=== PATIENT | female | born 1995 | race Caucasian/White ===

== ENCOUNTER 2022-04-09 12:38 | Inpatient (IN) ==
[2022-04-09] MEDS ORDERED: OXYTOCIN 30 UNITS/500 ML BAG IV PRN (12:41)
[2022-04-09] MEDS ORDERED: LIDOCAINE 1% LOCAL 20 ML VIAL INFIL PRN (12:41)
--- NOTE | 2022-04-09 12:44 | History & Physical Report ---
Date of Service April 09, 2022 Assessment & Plan (1) with 39 completed weeks gestation: (2) SROM (spontaneous rupture of membranes): Plan Admission, epidural on demand. discussed issues with prom. gbs neg. Patient will discuss plan with Dr. Singleton who is taking over her care. fetus category one. History of Present Illness Primary Care Provider: Kori Somers MD Patient is a 26yowf with iup at 39 3/7 weeks who presents to labor and delivery from the office where she was determined to be ruptured by sse. She is now sent here for srom. gbs neg. +fm. no vb. and Delivery Plans covid vaccine and booster. Flu vaccine given 01/22/22- OB Labs: Blood Type A Positive 09/04/21 Antibody Screen NEGATIVE 09/04/21 Hemoglobin 11.2 g/dl (12.0-16.0) L 01/22/22 Hematocrit 32.7 % (34.1-44.9) L 01/22/22 Mean Corpuscular Volume 90.5 fL (80-100) 09/04/21 Platelet Count 192 K/uL (130-400) 09/04/21 Rubella IgG Antibody Immune (Immune) 09/04/21 Rapid Plasma Reagin Nonreactive (Nonreactive) 09/04/21 Hepatitis B Surface Antigen. NON-REACTIVE (NON-REACTIVE) 09/04/21 Hepatitis C Antibody (EIA) NON-REACTIVE (NON-REACTIVE) 09/04/21 HIV (1&2) Ag and Ab Confirmation NON-REACTIVE (NON-REACTIVE) 09/04/21 Glucose 1 Hour 50 gm Load 125 mg/dl (70-130) 01/22/22 OB Optional Labs: Chlamydia trachomatis RNA NOT DETECTED (NOT DETECTED) 09/04/21 Neisseria gonorrhoeae RNA NOT DETECTED (NOT DETECTED) 09/04/21 Labs Reviewed: cf/sma-negative--mln cfdna-low risk--mln Declines msafp--mln gbs neg Allergies Allergy/AdvReac Type Severity Reaction Status Date / Time No Known Allergies Allergy Verified 04/09/22 12:01 Home Medications Medication Instructions Recorded Confirmed Type prenat.vits,ada,adb-[id number] 1 tab PO DAILY 08/28/21 04/09/22 History Patient History Medical History Varicella vaccination Surgical History S/P wisdom tooth extraction Status post laser ablation of incompetent vein Family History Grandmother (Paternal) Breast cancer Aunt Breast cancer (P) aunts x2 Father Melanoma Denies family history of Ovarian cancer Colorectal cancer Social History Smoking Status: Never smoker marital status: marital status details: Сергей Mendez (28) [phone] Current Living Situation: Spouse Current Living Situation Comment: lives with spouse, dog current occupational status: employed current occupation: [employer] 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
[2022-04-09 13:06] LABS: Hematocrit (blood only) 37.3 % (34.1-44.9); Mean Corpuscular Hemoglobin 30.7 pg (25.0-34.0); Mean Corpuscular Hgb Conc 34.9 g/dL (32.0-36.0); Mean Platelet Volume 10.8 fL (9.4-12.3); Platelet Count 206 K/uL (130-400); RDW Standard Deviation 41.1 fL (36.4-46.3); Red Blood Count 4.24 M/uL (3.93-5.22); White Blood Count 8.32 K/ul (4.8-10.8)
[2022-04-09] MEDS ORDERED: BUTORPHANOL TARTRATE 1 MG/ML VIAL IV PRN (18:39)
[2022-04-09] MEDS: LACTATED RINGER'S 1,000 ML IV PRN ×2 (20:44→21:50)
[2022-04-09] MEDS ORDERED: ePHEDrine sulfate 50 MG/ML AMP ONE (20:55)
[2022-04-09] MEDS ORDERED: fentaNYL 2MCG/ML ROPIVACAINE 1.25MG/ML 100 ML BAG EPI ONE (20:56)
[2022-04-09] MEDS ORDERED: BUPIVACAINE 0.25% 30 ML VIAL ONE (20:56)
[2022-04-09] MEDS ORDERED: fentaNYL citrate 100 MCG/2 ML VIAL ONE (20:56)
[2022-04-09] MEDS ORDERED: LIDOCAINE 2%/EPINEPHRINE 1:200,000 20 ML SDV ONE (20:56)
[2022-04-09] MEDS ORDERED: SODIUM CHLORIDE 0.9% INJ 10 ML VIAL ONE (20:56)
[2022-04-09] MEDS ORDERED: NALOXONE HCL 0.4 MG/1 ML VIAL/CARP IV PRN (21:06)
[2022-04-09] MEDS ORDERED: NALOXONE HCL 1 MG in SODIUM CHLORIDE 0.9% 1000ML 1,000 ML IV PRN (21:06)
[2022-04-09] MEDS ORDERED: NALBUPHINE HCL INJ 10 MG/ML AMP IV PRN (21:06)
[2022-04-09] MEDS ORDERED: ONDANSETRON INJ 2 MG/ML 2 ML VIAL IV PRN (21:06)
[2022-04-09] MEDS ORDERED: diphenhydrAMINE 50 MG/ML VIAL IV PRN (21:06)
[2022-04-09] MEDS ORDERED: ePHEDrine sulfate 50 MG/ML AMP IV PRN (21:06)
--- NOTE | 2022-04-09 21:08 | Anesthesiology Consultation ---
Date of Service April 09, 2022 Assessment & Plan (1) Encounter for pre-operative examination: Chart Review Chart Review: Patient NOT seen in Pre Admission Testing and Acceptable Risk for Labor Epidural Consults Requested none History Height/Weight Height: 5 ft 9 in Weight: 91.172 kg Allergies Allergy/AdvReac Type Severity Reaction Status Date / Time No Known Allergies Allergy Verified 04/09/22 13:42 Medications Home Medications Medication Instructions Recorded Confirmed Last Taken prenat.vits,ada,adb-xbxn-lbyre 1 tab PO DAILY 08/28/21 04/09/22 04/08/22 20:00 Active Medications Generic Name Dose Route Start Last Admin Trade Name Freq PRN Reason Stop Dose Admin Butorphanol Tartrate 1 mg 04/09/22 18:39 04/09/22 19:28 Butorphanol Tartrate 1 Mg/Ml Vial IV 05/09/22 18:38 1 mg Q1H PRN Administration Pain Lactated Ringer's 1,000 mls @ 125 mls/hr 04/09/22 12:41 04/09/22 20:54 Lr IV 04/11/22 12:40 999 mls/hr .Q8H PRN Infusion L&D Protocol Protocol Past Medical History Medical History Varicella vaccination Exercise / Class Metabolic Activity II 4-5 Yardwork/Stairs/Walk up hill Past Family History Family History Grandmother (Paternal) Breast cancer Aunt Breast cancer (P) aunts x2 Father Melanoma Denies family history of Ovarian cancer Colorectal cancer Past Surgical History Surgical History S/P wisdom tooth extraction Status post laser ablation of incompetent vein Past Anesthesia History No Hx of Anesthesia Complications and No Family Hx of Anesthesia Complications History of PONV No Hx of PONV and No Hx of Motion Sickness Social History Smoking Status: Never smoker Hx Alcohol Use: No Hx Substance Use: No Physical Exam Vital Signs Last Vital Signs Temp 36.8 C 04/09/22 19:16 Pulse 91 H 04/09/22 21:27 Resp 20 04/09/22 19:16 BP 118/65 12/02/22 21:11 Pulse Ox 98 04/09/22 21:27 Testing Laboratory Results 04/09/22 12:48
[2022-04-09] MEDS: fentaNYL 2MCG/ML ROPIVACAINE 1.25MG/ML 100 ML BAG EPI PRN (21:37)
[2022-04-10] MEDS ORDERED: NURSING L&D Epidural Breakthrough Pain Update ONE (03:28)
[2022-04-10] MEDS: LACTATED RINGER'S 1,000 ML IV PRN (03:38)
[2022-04-10] MEDS: fentaNYL 2MCG/ML ROPIVACAINE 1.25MG/ML 100 ML BAG EPI PRN (04:49)
--- NOTE | 2022-04-10 07:43 | Delivery Summary ---
Vaginal Delivery Summary Date of Service April 10, 2022 Vaginal Delivery Summary Spontaneous vaginal delivery the patient arrived in ruptured membranes and then progressed into active labor she requested epidural and then progressed to fully dilated she pushed over a total of 3 contractions baby in occiput anterior delivering the head mouth and then nares suctioned fluid was clear no nuchal for cord gentle traction no excessive force live vigorous female cord clamped and cut cord blood obtained placenta removed with gentle traction second-degree tear repaired with 3-0 Vicryl and small right labial tear repaired with 3-0 Vicryl Pitocin administered after delivery of the placenta sponge and instrument counts correct uterine tone improved estimated blood loss 300 mL sponge and instrument counts correct
[2022-04-10] MEDS ORDERED: ACETAMINOPHEN 325 MG TAB PO PRN (07:52)
[2022-04-10] MEDS ORDERED: OXYTOCIN 30 UNITS/500 ML BAG IV PRN (07:52)
[2022-04-10] MEDS ORDERED: HYDROCORTISONE ACETATE 25 MG SUPP PR PRN (07:52)
[2022-04-10] MEDS ORDERED: bisacodyL 10 MG SUPP PR PRN (07:52)
[2022-04-10] MEDS ORDERED: BENZOCAINE 20% AER SPR 82.5 GM CAN EXT PRN (07:52)
[2022-04-10] MEDS: DOCUSATE SODIUM 100 MG CAP PO SCH ×2 (08:00→20:53)
[2022-04-10] MEDS: PRENATAL VITAMIN 1 TAB PO SCH (08:00)
--- NOTE | 2022-04-10 09:02 | Anesthesia Procedure Note ---
Date of Service April 10, 2022 Anesthesia Post Epidural Note Vital Signs Vital Signs: Temp Pulse Resp BP Pulse Ox 37.1 C 74 20 134/59 L 100 04/10/22 06:05 04/10/22 08:46 04/10/22 06:05 04/10/22 08:46 04/10/22 07:12 Pain Intensity Lower Abdomen: Pain Intensity: 4 Notes Mental Status: alert / awake / arousable Nausea / Vomiting: adequately controlled Pain: adequately controlled Airway Patency, RR, SpO2: stable & adequate BP & HR: stable & adequate Hydration State: stable & adequate Neuraxial Anesthesia: was administered and sensory block is resolving Anesthetic Complications: no major complications apparent Epidural: Removed without complications and With tip intact
[2022-04-10] MEDS: IBUPROFEN 600 MG TAB PO PRN (18:22)
[2022-04-11 07:49] LABS: Mean Corpuscular Hgb Conc 34.4 g/dL (32.0-36.0); Mean Corpuscular Volume 90.1 fL (80.0-100.0); Mean Platelet Volume 10.7 fL (9.4-12.3); Platelet Count 172 K/uL (130-400); RDW Coefficient of Variation 13.2 % (11.5-14.5); RDW Standard Deviation 42.8 fL (36.4-46.3); Red Blood Count 3.55 M/uL (3.93-5.22); White Blood Count 10.57 K/ul (4.8-10.8)
--- NOTE | 2022-04-11 07:57 | Obstetrical Progress Note ---
Date of Service April 11, 2022 Assessment & Plan (1) Vaginal delivery: Plan Doing well. Routine care. Day #:: 1 Subjective Ambulation: ambulation w/ walker Voiding: no voiding problems Passing Gas:: Yes Diet Tolerance:: regular diet Lochia:: Small Feeding Type:: breast feeding Feels well. Continues to work on breast feeding and desires to see qm consultant. Physical Exam Constitutional WD/WN, vitals as above Cardiovascular Extremities: no calf tenderness and no edema Gastrointestinal (Abdomen) soft, nt, nd ff/nt 1 below u Psychiatric A+Ox3, euthymic affect Results & Data ([facility]) Vital Signs (Past 12 Hours) Vital Signs Temp Pulse Resp BP Pulse Ox O2 Del Method 04/11/22 03:41 36.7 C 63 16 107/72 99 Room Air 04/10/22 22:52 36.9 C 74 18 103/68 98 Room Air 04/10/22 20:17 37.1 C 80 18 123/78
[2022-04-11] MEDS: PRENATAL VITAMIN 1 TAB PO SCH (08:32)
[2022-04-11] MEDS: DOCUSATE SODIUM 100 MG CAP PO SCH ×2 (08:32→20:03)
[2022-04-11] MEDS: IBUPROFEN 600 MG TAB PO PRN ×2 (08:32→20:03)
[2022-04-11] MEDS ORDERED: DIPHTHERIA/TETANUS/PERTUSSIS 0.5 ML SYR/VIAL IM ONE (09:00)
[2022-04-11] MEDS ORDERED: bisacodyL 5 MG TABEC PO SCH (20:00)
--- NOTE | 2022-04-12 06:39 | Obstetrical Progress Note ---
Date of Service <Duran Carpio DO - Last Filed: 04/12/22 06:58> April 12, 2022 Assessment & Plan <Duran Carpio DO - Last Filed: 04/12/22 06:58> (1) Vaginal delivery: - Feels well today. Eating well, voiding well, ambulating well. - Pain well controlled with ibuprofen 600mg Q4H PRN - Routine care -- OOB, ambulation, diet progression as tolerated - After discharge will have 6 week follow-up with Dr. Singleton - Will D/C today. Day #:: 2 <Vianca Shepherd MD, FACOG - Last Filed: 04/12/22 07:18> (1) Vaginal delivery: Subjective <Duran Carpio DO - Last Filed: 04/12/22 06:58> Ambulation: ambulating normally Voiding: no voiding problems Passing Gas:: Yes Diet Tolerance:: regular diet Lochia:: Small Feeding Type:: breast feeding Current Pain Level(1-10): 1 Review of Systems Denies fever, chills, sweats Denies shortness of breath, difficulty breathing, chest pain, palpitations, chest pressure. Denies breast pain. Denies dysuria. Denies headache or changes in vision. Physical Exam <Duran Carpio DO - Last Filed: 04/12/22 06:58> General: Alert, oriented. No acute distress. Cardiac: Regular rate and rhythm, no murmurs/rubs/gallops. Respiratory: Clear to auscultation bilaterally a/p, no wheezes/rales/rhonchi. No increased work of breathing. Symmetrical chest rise. No respiratory distress. Abdomen: Soft, nontender, nondistended. Bowel sounds present. Uterus: Uterine fundus firm, palpable 2 cm below umbilicus. Lower Extremities: No lower extremity edema or swelling. No deep calf pain. Mayelin's negative bilaterally. Results & Data ([facility]) <Duran Carpio DO - Last Filed: 04/12/22 06:58> Vital Signs (Past 12 Hours) Vital Signs Temp Pulse Resp BP Pulse Ox O2 Del Method 04/11/22 22:59 36.7 C 65 18 110/74 99 Room Air 04/11/22 20:00 36.6 C 65 18 109/72 Room Air <Vianca Shepherd MD, FACOG - Last Filed: 04/12/22 07:18> Co-Signing Physician Notes Resident Physician Supervision Note: I interviewed and examined the patient. Discussed with Dr. Carpio and agree with findings and plan as documented in the note. Any exceptions or clarifications are listed here: Doing well, plan d/c. Instructions given. Documented By: Vianca Shepherd MD, FACOG Resident Activity Tracking <Duran Carpio, - Last Filed: 04/12/22 06:58> Resident Involvement: Resident Care Provided Care Provided: OB Delivery
[2022-04-12 07:41] LABS: Hematocrit (blood only) 33.3 % (34.1-44.9); Hemoglobin 11.7 g/dl (12.0-16.0)
[2022-04-12] MEDS: DOCUSATE SODIUM 100 MG CAP PO SCH (08:22)
[2022-04-12] MEDS: PRENATAL VITAMIN 1 TAB PO SCH (08:22)
[2022-04-12] MEDS: IBUPROFEN 600 MG TAB PO PRN (08:24)
== END 2022-04-12 13:55 | disposition home or self-care (01) | DRG 807 ==
LOC: OPB 12:38 → 4S1 12:40 → 4E2 04-10 13:53
DX: Z3A.39 39 weeks gestation of pregnancy; O70.1 Second degree perineal laceration during delivery; Z37.0 Single live birth